=== PATIENT | female | born 1960 | race Hispanic/Latino ===

== ENCOUNTER 2018-07-25 21:48 | Emergency (ER) | payer BC ==
[2018-07-25] MEDS ORDERED: HYDROCODONE/ACETAMINOPHEN 5/325 MG TAB ONE (22:30)
== END 2018-07-25 23:38 | disposition home or self-care (01) ==
LOC: EDH 21:48
DX: S82.102A Unspecified fracture of upper end of left tibia, initial encounter for closed fracture (principal); Z88.1 Allergy status to other antibiotic agents; W22.8XXA Striking against or struck by other objects, initial encounter; Y93.89 Activity, other specified; Y92.098 Other place in other non-institutional residence as the place of occurrence of the external cause; Y99.8 Other external cause status
CPT/HCPCS: 29505; 73562

== ENCOUNTER 2019-09-02 11:12 | Emergency (ER) | payer BC ==
[2019-09-02] MEDS ORDERED: HYDROCODONE/ACETAMINOPHEN 10/325 MG TAB ONE (11:26)
== END 2019-09-02 12:55 | disposition home or self-care (01) ==
LOC: EDH 11:12
DX: S80.02XA Contusion of left knee, initial encounter (principal); M25.462 Effusion, left knee; Z88.1 Allergy status to other antibiotic agents; W01.0XXA Fall on same level from slipping, tripping and stumbling without subsequent striking against object, initial encounter; Y93.89 Activity, other specified; Y92.89 Other specified places as the place of occurrence of the external cause; Y99.8 Other external cause status
CPT/HCPCS: 73562

== ENCOUNTER 2022-04-06 00:05 | Emergency (ER) | payer BC ==
[~2022-04-06] VITALS: Ht 152.4 cm; Wt 74.8 kg
[2022-04-06] MEDS ORDERED: MORPHINE 4 MG SYG ONE (01:09)
[2022-04-06] MEDS ORDERED: ONDANSETRON 4MG INJ ONE (01:09)
[2022-04-06 01:15] LABS: APPEARANCE,URINE CLEAR (CLEAR); BILIRUBIN,URINE NEGATIVE (NEGATIVE); COLOR,URINE LIGHT-YELLOW (YELLOW); GLUCOSE, URINE (UA) NEGATIVE (NEGATIVE); KETONES,URINE NEGATIVE (NEGATIVE); LEUKOCYTE ESTERASE ,URINE 500 Leu/uL (NEGATIVE); NITRATE,URINE NEGATIVE (NEGATIVE); OCCULT BLOOD,URINE NEGATIVE (NEGATIVE); PROTEIN,URINE NEGATIVE (NEGATIVE); UROBILINOGEN,URINE 0.2 mg/dL (0.2-1.0)
[2022-04-06 01:18] LABS: BASOPHILS % (AUTO) 0.3 % (0.0-5.0); EOSINOPHILS % (AUTO) 1.4 % (0.0-8.0); HEMATOCRIT 40.1 % (36-48); LYMPHOCYTES % (AUTO) 13.6 % (21.0-51.0); MEAN CORPUSCULAR HEMOGLOBIN 28.1 pg (27.0-33.0); MEAN CORPUSCULAR HGB CONC 31.9 g/dL (32.0-36.0); MEAN CORPUSCULAR VOLUME 88.1 fL (79-99); MONOCYTES % (AUTO) 6.7 % (3.0-13.0); NEUTROPHILS % (AUTO) 77.2 % (40.0-77.0); PLATELET COUNT (AUTO) 254 K/uL (130-400); RED BLOOD CELL COUNT(AUTO) 4.55 MIL/uL (4.00-5.50); RED CELL DISTRIBUTION WIDTH 13.4 % (11.0-15.5); WHITE BLOOD COUNT (AUTO) 8.6 K/uL (4.8-10.8)
[2022-04-06 01:24] LABS: CREATININE 1.1 mg/dL (0.5-1.5); POTASSIUM 3.4 mmol/L (3.5-5.1)
[2022-04-06 01:29] LABS: TOTAL PROTEIN, SERUM 7.5 g/dL (6.0-8.3)
[2022-04-06 01:29] LABS: BACTERIA,URINE RARE /HPF (None Seen); MUCUS,URINE RARE LPF (None Seen); OTHER CASTS, URINE 1 /LPF (None Seen); SQUAMOUS EPITHELIAL CELL,UR RARE /HPF (0-2); WBC,URINE 26-50 /HPF (0-1)
[2022-04-06] MEDS ORDERED: MORPHINE 4 MG SYG IVP ONE (01:30)
[2022-04-06] MEDS ORDERED: ONDANSETRON 4MG INJ IVP ONE (01:30)
[2022-04-06] MEDS ORDERED: CEFTRIAXONE 1G VIAL IVP ONE (02:00)
[2022-04-06] MEDS ORDERED: KETOROLAC 30MG VIAL (30MG/ML) IVP ONE (02:00)
[2022-04-06] MEDS ORDERED: ONDA4TAB10 PO (03:47)
[2022-04-06] MEDS ORDERED: IBUP-2070 PO (03:47)
[2022-04-06] MEDS ORDERED: MACR100 PO (03:47)
[2022-04-06 04:14] VITALS: BP 123/74
== END 2022-04-06 04:16 | disposition home or self-care (01) ==
LOC: EDH 00:05
DX: N12 Tubulo-interstitial nephritis, not specified as acute or chronic (principal); I10 Essential (primary) hypertension; Z20.822 Contact with and (suspected) exposure to COVID-19
CPT/HCPCS: 99284; 74176; 96374; 96375 ×2; 87635; 80053; 85025; 87077; 87088; 87186; 87804 ×2; 81001; 36415; C9803; J0696; J2405; J2270; J1885